=== PATIENT | male | born 2000 | race Caucasian/White ===

== ENCOUNTER 2023-09-29 17:18 | Emergency (ER) | payer BC, SELFPAY ==
[2023-09-29 17:26] VITALS: BP 134/86; PULSE 78; RESP 16; TEMP 36.6; O2SAT 100
--- NOTE | 2023-09-29 17:42 | ED.GENADULT ---
HPI - General Adult General Chief complaint: Urogenital-Male Stated complaint: STD TESTING Time Seen by Provider: 09/29/23 17:30 Patient presents today requesting testing for STIs but is specifically concerned about HPV in his throat. States a female sexual partner has mentioned to him that it's possible that she may have HPV and now he is concerned. He denies any symptoms in the mouth, throat, or any symptoms. He uses condoms with intercourse but not with oral sex. He is unsure if he received the HPV vaccine as a child. Related Data Home Medications Medication Instructions Recorded Confirmed No Home Medications 09/29/23 09/29/23 Allergies Allergy/AdvReac Type Severity Reaction Status Date / Time No Known Allergies Allergy Verified 09/29/23 17:36 Review of Systems Review of Systems: CONSTITUTIONAL: Denies body aches, fever, chills, or sweats. EYES: Denies visual changes, redness, or discharge. ENT: Denies rhinorrhea, congestion, sore throat, or otalgia. CARDIOVASCULAR: Denies chest pain, palpitations, or edema. RESPIRATORY: Denies cough or dyspnea. GASTROINTESTINAL: Denies abdominal pain, nausea, vomiting, or diarrhea. GENITOURINARY: Denies dysuria or hematuria. SKIN: Denies rash, itching, or wounds. MUSCULOSKELETAL: Denies back pain, joint pain, or myalgia. NEUROLOGIC: Denies headache, numbness, tingling, or weakness. PSYCH: Denies depression or anxiety. PMFSH Comments At time of signature, I have reviewed and agree with nursing past medical, surgical, social and family history unless otherwise noted. Please see nursing chart for further information. There is no relevant family history pertinent to the presenting complaint Exam Narrative: GENERAL: Well-appearing, well-nourished, and in no acute distress. HEAD: Normocephalic, atraumatic. EYES: EOMI. No redness or drainage. Conjunctivae normal. ENT: Mucous membranes pink and moist. Nares clear. Throat normal. Uvula midline. NECK: Normal AROM. CHEST: No respiratory distress. : Deferred. EXTREMITIES: Normal range of motion. No edema. SKIN: Warm, dry, no rash. Capillary refill normal. Normal skin turgor. NEURO: No focal deficits. Alert and oriented x3. Gait steady. PSYCH: Normal affect. No signs of depression or anxiety. Course Course Level of Care: Express [facility] Visit Vital Signs Vital signs: Vital Signs Temperature 97.8 F 09/29/23 17:26 Pulse Rate 78 09/29/23 17:26 Respiratory Rate 16 09/29/23 17:26 Blood Pressure 134/86 09/29/23 17:26 Pulse Oximetry 100 09/29/23 17:26 Temperature 97.8 F 09/29/23 17:26 Pulse Rate 78 09/29/23 17:26 Respiratory Rate 16 09/29/23 17:26 Blood Pressure 134/86 09/29/23 17:26 Pulse Oximetry 100 09/29/23 17:26 Oxygen Delivery Room Air 09/29/23 17:30 Reviewed Medical Decision Making MDM Narrative Medical decision making narrative: Since patient is symptom free and is requesting a full panel of screenings for STIs, which [facility] are unequipped to do, patient was given the option of completing gonorrhea, chlamydia, and Trichomonas here today, or being referred to a PCP or sexual health clinic for a full panel. He has opted to make an appointment at a clinic to be taken care of all at once. Resources provided. Anticipatory guidance given. Differential Diagnosis Differential Diagnosis: Worried well, STD exposure Vital Signs Vital Signs: Vital Signs Temperature 97.8 F 09/29/23 17:26 Pulse Rate 78 09/29/23 17:26 Respiratory Rate 16 09/29/23 17:26 Blood Pressure 134/86 09/29/23 17:26 Pulse Oximetry 100 09/29/23 17:26 Temperature 97.8 F 09/29/23 17:26 Pulse Rate 78 09/29/23 17:26 Respiratory Rate 16 09/29/23 17:26 Blood Pressure 134/86 09/29/23 17:26 Pulse Oximetry 100 09/29/23 17:26 Oxygen Delivery Room Air 09/29/23 17:30 Critical Care Time Critical Care Time Critical Care Time: No Discharge
== END 2023-09-29 17:48 | disposition home or self-care (01) ==
PROVIDERS: Emergency Provider Nurse Practitioner
DX: Z71.1 Person with feared health complaint in whom no diagnosis is made (principal)
CPT/HCPCS: 99202; 99203; G0463

== ENCOUNTER 2025-05-02 10:54 | Emergency (ER) | payer SELFPAY ==
[2025-05-02 11:09] VITALS: BP 110/60; PULSE 69; RESP 19; TEMP 36.5; O2SAT 100
--- OUTSIDE RECORDS SUMMARY | 2025-05-02 11:21 | XMS_ITS | Clinical Summary ---
Author Organization [facility] [employer] [facility] [employer] Address [address] [place] [address] Care Team Providers Care Mechanical Insulator Name Role Phone Unknown, Provider Primary Care Provider Unavaila ble Source Comments [facility] [employer] [facility],non-owned Affiliates and Associated Physician Practices is amultiple site organization consisting of ambulatory clinics and hospital sitesin [place], [place], [place] and [place]. This disclosure is being madepursuant to the Care Everywhere program and may not contain all information available regarding this patient. Last updated 18.[facility] [employer] [facility] Allergies No known active allergies Medications * Be aware that medications may not be up to date on this document. Alwaysverify current medications with the patient. HYDROcodone-acet aminophen ([place]) 5-325 MG tabletIndication s:Cellulitis of buttock, left Take 1 (one) tablet by mouth every 8 hours as needed for Pain 15 tablet 02/27/2023 Active Active Problems No known active problems Family History Medical History Relation Name Comments None Known Father Bipolar Disorder Mother Cirrhosis Paternal Grandfather Cancer - Esophageal Paternal Grandmother Relation Name Status Comments Brother Alive Father Alive Maternal Grandfather Alive Maternal Grandmother Mother Alive Paternal Grandfather Paternal Grandmother Sister Alive Social History Tobacco Use Types Packs/Day Years Used Date Smoking Tobacco: Never Smokeless Tobacco: Current Chew Tobacco Cessation:Ready to Q uit: No; Counseling Given: Yes Alcohol Use Standard Drinks/Week Comments Not Currently 0 (1 standard drink = 0.6 oz pur e alcohol) AUDIT-C Answer Date Recorded Q1: How often do you have a drink containing alcohol? Never 02/27/2023 Q2: How many drinks containi ng alcohol do you have on a typical day when you are drinking? Patient does not drink Q3: How often do you have si x or more drinks on one occasion? 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 Legal Sex Male 12:26 PM HEALTH CAREERS INSTRUCTOR Gender Identity Not on file Sexual Orientation Not on file Last Filed Vital Signs Vital Sign Reading Time Taken Comments Blood Pressure 133/66 02/27/2023 2:44 AM CDT Pulse 76 02/27/2023 2:44 AM CDT Temperature 36.5 C (97.7 F) 02/27/2023 2:44 AM CDT Respiratory Rate 20 02/27/2023 2:44 AM CDT Oxygen Saturation 99% 02/27/2023 2:44 AM CDT Inhaled Oxygen Concentration - - Weight 77.1 kg (170 lb) 02/26/2023 6:59 PM CDT Height 172.7 cm (5' 8) 02/26/2023 6:59 PM CDT Body Mass Index 25.85 02/26/2023 6:59 PM CDT Plan of Treatment Health Maintenance Due Date Last Done Comments DTAP/TDAP/TD VACCINES (1 - Tdap) 2017 HEPATITIS B VACCINE (1 of 3 - 19+ 3-dose series) 2017 COVID-19 VACCINE (2 - 2023-2 5 season) 2024 10/11/2021 DEPRESSION SCREENING 09/06/2024 05/14/2022 HPV VACCINE (1 - 3-dose SCDM series) 2025 INFLUENZA VACCINE (#1) 2025 9, 07/09/2018, 09/16/2017 ZOSTER VACCINE (1 of 2) 01/07/2048 HEPATITIS C SCREENING Discontinued HIB VACCINE Aged Out No longer eligi ble based on patient's age to complete this topic HIV SCREENING Discontinued MENINGOCOCCAL (Group B) VACCINE SHARED DECISION-MAKING Aged Out No longer eligible based on patient's age to complete this topic MENINGOCOCCAL GROUPS A/C/Y/W VACCINE Aged Out No longer eligible based on patient's age to complete this topic PNEUMOCOCCAL VACCINE Aged Out No long er eligible based on patient's age to complete this topic Insurance [facility] MED[facility] Care Teams Mechanical Insulator Relationship Specialty Start Date End Date Unknown, Provider PCP - General 05/02/24
--- NOTE | 2025-05-02 12:26 | ED_ITS ---
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 Over last several days he has developed a non painful rash across his face and upper arms. The wounds are not painful and he says that does not feel like when he has had herpetic joel in the past. They are red bumps which he originally thought was razor burn. No systemic signs of illness. Patient is also having discomfort in his ears. No hearing loss, patient has cauliflower ear on the right without almost completely occluded ear canal. Related Data Allergies Allergy/AdvReac Type Severity Reaction Status Date / Time No Known Allergies Allergy Verified 05/02/25 11:11 Exam Narrative: APPEARANCE: No apparent distress. Head: Right ear has cough lower changes with almost completely external canal, left ear is normal, both ear canals have signs of otitis externa with granulation tissue in the canal EYES: EOMI, NOSE: Atraumatic NECK: Trachea midline RESPIRATORY: No increased rate of breathing CARDIOVASCULAR: RRR, ABDOMINAL: Non-distended MUSCULOSKELETAl: No obvious deformities NEURO: Alert. Moving 4/4 extremities SKIN:: Red folliculitis over the patient's face neck shoulders, no drainable abscesses, no scaly lesions, no herpetic lesions PSYCHIATRIC: Normal affect Course Vital Signs Vital signs: Vital Signs Temperature 97.7 F 05/02/25 11:09 Pulse Rate 69 05/02/25 11:09 Respiratory Rate 05/02/25 11:09 Blood Pressure 110/60 05/02/25 11:09 Pulse Oximetry 100 05/02/25 11:09 Oxygen Delivery Room Air 05/02/25 11:09 Temperature 97.7 F 05/02/25 11:09 Pulse Rate 69 05/02/25 11:09 Respiratory Rate 19 05/02/25 11:09 Blood Pressure 110/60 05/02/25 11:09 Pulse Oximetry 100 05/02/25 11:09 Oxygen Delivery Room Air 05/02/25 11:09 Medical Decision Making [facility] Narrative Medical decision making narrative: -Course: 25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 It is not painful like herpetic joel. It does not appear to be fungal like ringworm. Patient will be trialed on a course of doxycycline given primary care follow-up. Given return precautions. Patient also has otitis externa. He will be given a course of Ciprodex. He is given ENT follow-up. -DDX includes but is not limited to: Folliculitis, staff, chronic with low, ringworm Vital Signs Vital Signs: Vital Signs Temperature 97.7 F 05/02/25 11:09 Pulse Rate 69 05/02/25 11:09 Respiratory Rate 19 05/02/25 11:09 Blood Pressure 110/60 05/02/25 11:09 Pulse Oximetry 100 05/02/25 11:09 Oxygen Delivery Room Air 05/02/25 11:09 Temperature 97.7 F 05/02/25 11:09 Pulse Rate 69 05/02/25 11:09 Respiratory Rate 19 05/02/25 11:09 Blood Pressure 110/60 05/02/25 11:09 Pulse Oximetry 100 05/02/25 11:09 Oxygen Delivery Room Air 05/02/25 11:09 Discharge Plan Discharge Clinical Impression: Folliculitis, Otitis externa Patient Disposition: Home Condition: Stable Instructions: Antibiotic Form, Swimmer's Ear (AC), Folliculitis (ED) Additional Instructions: You were seen emergency department for folliculitis and otitis externa. Please take the antibiotics and ear drops as directed. Please follow-up with the primary care physician listed below in 5-7 days. You can follow-up with the ENT listed below for further management of your cauliflower ear and otitis externa. Patient Language: Citizen Of [place] Prescriptions: New doxycycline hyclate 100 mg capsule 100 mg PO DAILY Qty: 20 0RF Cipro HC 0.2-1 % drops,suspension 3 drp EACH EAR Q12H 7 Days Qty: 10 0RF Follow-up/Referrals: Osmel Reynolds MD [Physician, Ear, Nose, Throat] - 1 Week Referral Note: Otitis externa due to cauliflower ear PHYSICIAN,[employer]ER [Primary Care Provider, Internal Medicine] Balbir Montero MD [Physician, Family Practice] - 1 Week Referral Note: mendy pcp, folliculitis. david lopez
--- OUTSIDE RECORDS SUMMARY | 2025-05-02 12:33 | XMS_ITS | Clinical Summary ---
Author Organization [facility] Address [address] [place] [address] Care Team Providers Care Steam Press Operator Name Role Phone Unknown, Provider Primary Care Provider Unavaila ble Source Comments [facility],non-owned Affiliates and Associated Physician Practices is amultiple site organization consisting of ambulatory clinics and hospital sitesin [place], [place], [place] and [place]. This disclosure is being madepursuant to the Care Everywhere program and may not contain all information available regarding this patient. Last updated 18.[facility] Allergies No known active allergies Medications * Be aware that medications may not be up to date on this document. Alwaysverify current medications with the patient. 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
== END 2025-05-02 12:45 | disposition home or self-care (01) ==
PROVIDERS: Emergency Provider Emergency Medicine
DX: L73.9 Follicular disorder, unspecified (principal); H60.91 Unspecified otitis externa, right ear
CPT/HCPCS: 99283